=== PATIENT | male | born 1995 | race Caucasian/White ===

== ENCOUNTER 2021-10-23 16:01 | Emergency (ER) | payer SELFPAY | END 2021-10-23 17:51 | disposition left against medical advice (07) | LOC: ED 16:01 | DX: S50.12XA Contusion of left forearm, initial encounter (principal); W20.8XXA Other cause of strike by thrown, projected or falling object, initial encounter; Y93.89 Activity, other specified; Y92.89 Other specified places as the place of occurrence of the external cause; Y99.8 Other external cause status ==

== ENCOUNTER 2023-07-24 08:30 | Emergency (ER) | payer SELFPAY ==
[~2023-07-24] VITALS: Wt 90.7 kg
[2023-07-24] MEDS ORDERED: PAXLOVID 300-11 EAC3 PO (09:25)
== END 2023-07-24 09:35 | disposition home or self-care (01) ==
LOC: ED 08:30
DX: U07.1 COVID-19 (principal); R51.9 Headache, unspecified